=== PATIENT | female | born 1940 | race Caucasian/White ===

== ENCOUNTER 2021-07-10 09:52 | Outpatient (CLI) | payer MEDICARE ==
[2021-07-10 11:24] LABS: #Basophils 0.1 10x3/uL (0.0-0.2); #Eosinphils 0.1 10x3/uL (0.0-0.5); #Monocytes 0.7 10x3/uL (0.0-1.1); #Neutrophils 3.4 10x3/uL (1.5-8.4); %Lymphocytes 33.3 % (18.0-47.0); %Monocytes 10.6 % (0.0-10.0); %Neutrophils 53.9 % (40.0-75.0); Hemoglobin 11.5 g/dL (12.0-15.5); Mean Corpuscular HGB CONC 33.3 g/dL (32.0-36.0); Mean Corpuscular Hemoglobin 32.6 pg (27.0-33.0); Mean Corpuscular Volume 97.7 fl (81.6-98.3); Platelet Count 244 10x3/uL (150-450); RBC Distribution Width 11.8 % (11.5-14.5); Red Blood Cell (RBC) Count 3.53 10x6/uL (3.90-5.03); White Blood Cell (WBC) Count 6.3 10x3/uL (3.5-10.5)
[2021-07-10 11:27] LABS: Bilirubin Neg (Negative); Blood, Urine Negative (Negative); Clarity Clear (Clear); Glucose, Urine (Dipstick) Normal (Negative); Ketone, Urine Negative (Negative); Leukocyte 25 (Negative); Nitrite Negative (Negative); Protein, Urine (Dipstick) Negative (Neg-Trace); Urobilinogen Normal mg/dL (Less than 2)
[2021-07-10 11:40] LABS: INR-International Normal Ratio 0.9; Prothrombin Time 10.2 sec (9.5-12.1)
[2021-07-10 11:45] LABS: Anion Gap 13 mmol/L (10-20); BUN (Urea Nitrogen) 12 mg/dL (9.8-20.1); Calc. Creatinine Clearance 0 mL/min (70-130); Calcium 9.5 mg/dL (7.8-10.44); Carbon Dioxide 25 mmol/L (23-31); Chloride 103 mmol/L (98-107); Glucose 89 mg/dL (83-110); Potassium 4.4 mmol/L (3.5-5.1); Sodium 137 mmol/L (136-145)
[2021-07-10 12:04] LABS: Bacteria/HPF Rare-Few HPF (None Seen); RBC/HPF 0-3 HPF (0-3); Squamous Epithelial 0-3 HPF (0-3); WBC/HPF 0-3 HPF (0-3)
[2021-07-11 02:26] LABS: SARS-CoV-2 PCR by NAA Not Detected (NotDetected)
== END 2021-07-10 09:53 | disposition home or self-care (01) ==
LOC: LABBT 09:52
PROVIDERS: ATTEND Orthopaedic Surgery
DX: Z01.818 Encounter for other preprocedural examination (principal); M16.11 Unilateral primary osteoarthritis, right hip; Z20.822 Contact with and (suspected) exposure to COVID-19
CPT/HCPCS: 80048; 81001; 85025; 85610; 87081; 93005; U0003; U0005; 93010

== ENCOUNTER 2021-08-14 08:50 | Outpatient (CLI) | payer MEDICARE ==
[2021-08-14 10:06] LABS: #Basophils 0.1 10x3/uL (0.0-0.2); #Monocytes 0.7 10x3/uL (0.0-1.1); #Neutrophils 3.7 10x3/uL (1.5-8.4); %Basophils 0.7 % (0.0-2.0); %Eosinophils 0.6 % (0.0-6.0); %Monocytes 10.1 % (0.0-10.0); %Neutrophils 53.3 % (40.0-75.0); Hemoglobin 12.3 g/dL (12.0-15.5); Mean Corpuscular HGB CONC 33.6 g/dL (32.0-36.0); Mean Corpuscular Hemoglobin 32.1 pg (27.0-33.0); Mean Corpuscular Volume 95.6 fl (81.6-98.3); Mean Platelet Volume 9.1 fl (7.4-10.4); Platelet Count 253 10x3/uL (150-450); RBC Distribution Width 11.8 % (11.5-14.5); Red Blood Cell (RBC) Count 3.83 10x6/uL (3.90-5.03); White Blood Cell (WBC) Count 6.9 10x3/uL (3.5-10.5)
[2021-08-14 10:09] LABS: INR-International Normal Ratio 0.9; Prothrombin Time 10.4 sec (9.5-12.1)
[2021-08-14 10:14] LABS: Bilirubin Neg (Negative); Blood, Urine 10 (Negative); Clarity Clear (Clear); Glucose, Urine (Dipstick) Normal (Negative); Ketone, Urine Negative (Negative); Leukocyte 100 (Negative); Nitrite Negative (Negative); Protein, Urine (Dipstick) 15 mg/dl (Neg-Trace); Urobilinogen Normal mg/dL (Less than 2)
[2021-08-14 10:22] LABS: Anion Gap 15 mmol/L (10-20); BUN (Urea Nitrogen) 11 mg/dL (9.8-20.1); Calc. Creatinine Clearance 0 mL/min (70-130); Calcium 9.8 mg/dL (7.8-10.44); Carbon Dioxide 24 mmol/L (23-31); Chloride 103 mmol/L (98-107); Glucose 81 mg/dL (83-110); Potassium 4.1 mmol/L (3.5-5.1); Sodium 138 mmol/L (136-145)
[2021-08-14 11:16] LABS: Bacteria/HPF None Seen HPF (None Seen); RBC/HPF 0-3 HPF (0-3); Squamous Epithelial 0-3 HPF (0-3); Transitional Epithelial 0-3 HPF (None Seen); WBC/HPF 0-3 HPF (0-3)
[2021-08-14 19:46] LABS: SARS-CoV-2 PCR by NAA Not Detected (NotDetected)
== END 2021-08-14 08:51 | disposition home or self-care (01) ==
LOC: LABBT 08:50
PROVIDERS: ATTEND Orthopaedic Surgery
DX: Z01.812 Encounter for preprocedural laboratory examination (principal); M16.11 Unilateral primary osteoarthritis, right hip; Z20.822 Contact with and (suspected) exposure to COVID-19
CPT/HCPCS: 80048; 81001; 85025; 85610; 87081; U0003; U0005

== ENCOUNTER 2021-08-19 05:36 | Day surgery (SDC) | payer MEDICARE ==
[2021-08-15 11:09] VITALS: BMI 26.6
[2021-08-19] MEDS ORDERED: Tranexamic Acid 1,000 MG/10 ML VIAL ONE (06:04)
[2021-08-19] MEDS ORDERED: ceFAZolin 2 GM/DEX 5% 100 ML BAG ONE (06:04)
[2021-08-19] MEDS ORDERED: Sodium Chloride 0.9% 100 ML ONE (06:05)
[2021-08-19] MEDS ORDERED: Vancomycin 1 GM/200 ML BAG ONE (06:05)
[2021-08-19] MEDS ORDERED: Phenylephrine 10 MG/ML VIAL ONE (06:52)
[2021-08-19] MEDS ORDERED: Fentanyl 100 MCG/2 ML VIAL ONE ×2 (06:52→09:10)
[2021-08-19] MEDS ORDERED: Propofol 500 MG/50 ML VIAL ONE (06:52)
[2021-08-19] MEDS ORDERED: Dexamethasone 20 MG/5 ML VIAL ONE (07:01)
[2021-08-19] MEDS ORDERED: Ketorolac Tromethamine 30 MG/ML VIAL ONE (07:01)
[2021-08-19] MEDS ORDERED: Bupivacaine PF 0.5% 30 ML VIAL ONE (07:26)
[2021-08-19] MEDS ORDERED: HYDROcodone/Acetaminophen 5/325 mg Tablet ONE (11:04)
== END 2021-08-19 14:27 | disposition home or self-care (01) ==
LOC: SDC 05:36
PROVIDERS: ATTEND Orthopaedic Surgery
PROC: 0SR904Z Replacement of Right Hip Joint with Ceramic on Polyethylene Synthetic Substitute, Open Approach (ICD-10-PCS; principal; 2021-08-19)
DX: M16.11 Unilateral primary osteoarthritis, right hip (principal); E78.5 Hyperlipidemia, unspecified; I10 Essential (primary) hypertension; J30.2 Other seasonal allergic rhinitis; Z79.1 Long term (current) use of non-steroidal anti-inflammatories (NSAID); Z79.899 Other long term (current) drug therapy; Z96.642 Presence of left artificial hip joint
CPT/HCPCS: J1100; J1885; J2370; J2704; J3010; J3370; J3490; S0020